=== PATIENT | female | born 1950 | race Caucasian/White ===

== ENCOUNTER → 2016-11-04 | Outpatient (CLI) | payer MEDICARE, BC ==
--- NOTE | 2016-11-04 09:39 | PCVCIMAG ---
APPROVED REPORT Study performed: 11/04/2016 08:40:59 EXAM: Comprehensive 2D, Doppler, and color-flow Echocardiogram Patient Location: Echo lab Status: routine Other Information Study Quality: Adequate Indications Hypertension/HDD Palpitations, Hyperlipidemia. 2D Dimensions IVSd: 8.92 (7-11mm)LVOT Diam: 18.81 (18-24mm) LVDd: 40.90 mm LVPWs: 24.50 mm PWd: 8.10 (7-11mm)Ascending Ao: 28.90 (22-36mm) LVDs: 27.53 (25-40mm) Left Atrium: 34.62 (27-40mm) Chen's LVEF: 61.56 % Volumes Left Atrial Volume (Systole) Single Plane 4CH: 23.48 mLSingle Plane 2CH: 30.12 mL LA ESV Index: 16.00 mL/m2 Aortic Valve AoV Peak Filippo.: 1.44 m/s AO Peak Gr.: 8.29 mmHgLVOT Max P.40 mmHg LVOT Max V: 1.16 m/s ARVIND Vmax: 2.24 cm2 Mitral Valve E/A Ratio: 0.8 MV Decel. Time: 189.06 ms MV E Max Filippo.: 0.71 m/s MV A Filippo.: 0.88 m/s IVRT: 114.19 ms Pulmonary Valve PV Peak Gr.: 2.75 mmHg Pulmonary Vein P Vein S: 0.73 m/sP Vein A: 0.30 m/s P Vein D: 0.36 m/sP Vein A Dur.: 76.1 msec P Vein S/D Ratio: 2.03 Tricuspid Valve TR Peak Filippo.: 2.49 m/s TR Peak Gr.: 24.78 mmHg Left Ventricle The left ventricle is normal size. There is normal LV segmental wall motion. There is normal left ventricular wall thickness. Left ventricular systolic function is normal. The left ventricular ejection fraction is within the normal range. LVEF is 60-65%. Grade I - abnormal relaxation pattern. Right Ventricle The right ventricle is normal size. The right ventricular systolic function is normal. Atria The left atrium size is normal. The right atrium size is normal. Aortic Valve The aortic valve is normal in structure. No aortic regurgitation is present. There is no aortic valvular stenosis. Mitral Valve The mitral valve is normal in structure. Mild mitral regurgitation. No evidence of mitral valve stenosis. Tricuspid Valve The tricuspid valve is normal in structure. Mild tricuspid regurgitation. Pulmonary artery pressure is 32mmhg. Pulmonic Valve The pulmonary valve is normal in structure. There is no pulmonic valvular regurgitation. Great Vessels The aortic root is normal in size. IVC is normal in size and collapses with >50% inspiration Pericardium There is no pericardial effusion. <Conclusion> The left ventricle is normal size. Left ventricular systolic function is normal. Grade I - abnormal relaxation pattern. The right ventricle is normal size. The left atrium size is normal. The aortic valve is normal in structure. Mild mitral regurgitation. Mild tricuspid regurgitation. Pulmonary artery pressure is 32mmhg.
== END | disposition home or self-care (01) ==
LOC: PCVCIMAG 08:16
PROVIDERS: ATTEND Internal Medicine Cardiovascular Disease
DX: I08.1 Rheumatic disorders of both mitral and tricuspid valves (principal); I10 Essential (primary) hypertension; E78.5 Hyperlipidemia, unspecified
CPT/HCPCS: 93306